=== PATIENT | male | born 1950 | race Caucasian/White ===

== ENCOUNTER 2017-10-31 15:57 | Emergency (ER) | payer MEDICARE, BC ==
[2017-10-31 16:47] VITALS: BP 162/107
--- NOTE | 2017-10-31 17:02 | ED ---
Hypertension - HPI Summary HPI Summary: 67 YO M WITH ELEVATED BPS, RIGHT SIDED MUSE AND FLUSHING FOR 2 DAYS. CONTINUES TO TAKE HIS REGULAR BP MEDS. NO CHEST PAIN/SOB. MUSE IS 3/10. NO FOCAL WEAKNESS. HAS BEEN URINATING A LOT. - History of Current Complaint Chief Complaint: UCGeneralIllness Stated Complaint: HIGH BLOOD PRESSURE Time Seen by Provider: 10/31/17 16:43 - Allergies/Home Medications Allergies/Adverse Reactions: Allergies Allergy/AdvReac Type Severity Reaction Status Date / Time Baum Allergy Severe Hives Verified 10/31/17 16:00 Codeine Allergy Severe Nausea And Verified 10/31/17 16:00 Vomiting Oxycodone Allergy Nausea And Verified 10/31/17 16:00 Vomiting Home Medications: Home Medications Acetaminophen TAB* [Tylenol TAB*] 500 mg PO QID 10/31/17 [History Confirmed 05/12] Aspirin 81 mg PO DAILY 10/31/17 [History Confirmed 10/31/17] Dronedarone TAB* [Multaq TAB*] 1 tab PO DAILY 10/31/17 [History Confirmed ] Hydrochlorothiazide TAB* [Hydrodiuril TAB*] 12.5 mg PO DAILY 10/31/17 [History Confirmed 10/31/17] Potassium Chlor TAB* [Potassium Chlor TAB 20 MEQ*] 20 meq PO BID 10/31/17 [ History Confirmed 10/31/17] Pravastatin Sodium [Pravachol] 40 mg PO DAILY 10/31/17 [History Confirmed ] Quinapril HCl 40 mg PO DAILY 10/31/17 [History Confirmed 10/31/17] PMH/Surg Hx/FS Hx/Imm Hx Endocrine/Hematology History: Denies: Hx Diabetes Cardiovascular History: Reports: Hx Hypertension - ON MEDS Denies: Hx Pacemaker/ICD Respiratory History: Reports: Hx Sleep Apnea History: Reports: Other Problems/Disorders - HX OF PROSTATE PROBLEMS Denies: Hx Dialysis, Hx Renal Disease Musculoskeletal History: Reports: Hx Arthritis - NEW, Other Musculoskeletal History Sensory History: Reports: Hx Contacts or Glasses Denies: Hx Hearing Aid Opthamlomology History: Reports: Hx Contacts or Glasses Neurological History: Reports: Hx Nerve Disease - SHORT FIBER peripheral Psychiatric History: Denies: Hx Panic Disorder - Cancer History Hx Chemotherapy: No - Surgical History Surgery Procedure, Year, and Place: right knee arthroscopy 2004 [facility] [place]. gastric hernia 2000 [facility] [place]. Left knee arthroscopy X 2. sinus drainage 1971 [place]. right knee open surgery [facility]. right knee injury surgery 1961 [facility]. Inguinal hernia repair 1961 [facility]. LEFT TKR SEP 19 2016 Hx Anesthesia Reactions: No Infectious Disease History: No Infectious Disease History: Reports: History Other Infectious Disease - staph in sinuses 1971 Denies: Hx Clostridium Difficile, Hx Hepatitis, Hx Human Immunodeficiency Virus (HIV), Hx of Known/Suspected MRSA, Hx Shingles, Hx Tuberculosis, Hx Known/ Suspected VRE, Hx Known/Suspected VRSA, Traveled Outside the in Last 30 Days - Social History Alcohol Use: None Alcohol Amount: NON ALCOHOLIC BEER Substance Use Type: Reports: None Smoking Status (MU): Former Smoker Review of Systems Positive: Other - FLUSHING, FEELS JITTERY Eyes: Negative ENT: Negative Cardiovascular: Negative Positive: Other - REPORTS HEART RATE FAST 95-106 AT HOME Respiratory: Negative Gastrointestinal: Negative Positive: other - URINATING A LOT Musculoskeletal: Negative Skin: Other - FLUSHING Positive: Headache - 3/10 RT SIDED Psychological: Normal All Other Systems Reviewed And Are Negative: Yes Physical Exam Triage Information Reviewed: Yes Vital Signs On Initial Exam: Initial Vitals Temp Pulse Resp BP Pulse Ox 98 F 78 20 192/108 100 10/31/17 16:08 10/31/17 16:08 10/31/17 16:08 10/31/17 16:08 10/31/17 16:08 Vital Signs Reviewed: Yes Appearance: Positive: Well-Appearing, No Pain Distress Skin: Positive: Warm, Other - FLUSHED Head/Face: Positive: Normal Head/Face Inspection Eyes: Positive: Normal, EOMI, CARINA ENT: Positive: Normal ENT inspection Neck: Positive: Supple Respiratory/Lung Sounds: Positive: Clear to Auscultation Cardiovascular: Positive: Normal, RRR Abdomen Description: Positive: Nontender, Soft Bowel Sounds: Positive: Present Musculoskeletal: Positive: Normal. Negative: Edema Left, Edema Right Neurological: Positive: Normal, Sensory/Motor Intact, Alert, Oriented to Person Place, Time Psychiatric: Positive: Normal AVPU Assessment: Alert - Erinn Coma Scale Best Eye Response: 4 - Spontaneous Best Motor Response: 6 - Obeys Commands Best Verbal Response: 5 - Oriented Diagnostics - Vital Signs Vital Signs Temp Pulse Resp BP Pulse Ox 10/31/17 16:47 93 16 162/107 10/31/17 16:28 95 16 168/107 95 10/31/17 16:08 98 F 78 20 192/108 100 - Laboratory Lab Results: Lab Results 10/31/17 Range/Units 16:24 POC Glucose (mg/dL) 105 H (70-100) mg/dL Lab Statement: Any lab studies that have been ordered have been reviewed, and results considered in the medical decision making process. Hypertension Course/Dx - Course Course Of Treatment: DISCUSSED WITH DR ALFARO AT ED. PATIENT WILL GO BY POV TO ED FOR FUTHER EVAL. - Diagnoses Provider Diagnoses: Hypertension, Flushing, Headache Discharge - Discharge Plan Condition: Stable Disposition: OTHER Discharge Disposition Comment: WILL GO DIRECTLY TO ED FOR FURTHER EVAL Patient Education Materials: Hypertension (ED), General Headache (ED) Referrals: Aime Correia MD [Primary Care Provider] - Additional Instructions: GO DIRECTLY TO THE EMERGENCY DEPARTMENT FOR FURTHER EVALUATION OF YOUR HIGH BLOOD PRESSURE, FLUSHING AND HEADACHE.
== END 2017-10-31 17:09 ==
LOC: UCEAST 15:57
DX: I10 Essential (primary) hypertension (principal); R23.2 Flushing; R51 Headache; Z88.5 Allergy status to narcotic agent; Z87.891 Personal history of nicotine dependence
CPT/HCPCS: 93005; 99212; G0463

== ENCOUNTER 2017-10-31 17:35 | Emergency (ER) | payer MEDICARE, BC ==
[2017-10-31] MEDS ORDERED: Carvedilol TAB* 6.25 MG PO ONE (19:17)
[2017-10-31 19:30] LABS: ABS Basophils 0.1 10^3/ul (0-0.2); ABS Eosinophils 0.1 10^3/ul (0-0.6); ABS Lymphocytes 3.4 10^3/ul (1.0-4.8); ABS Neutrophils 5.4 10^3/ul (1.5-7.7); ABS Nucleated RBC 0.01 10^3/ul; Eosinophil % 1.5 % (0-6); Hematocrit 40 % (42-52); Lymphocyte % 33.6 % (25-47); Mean Corpuscular HGB Conc 35 g/dl (31-36); Mean Corpuscular Hemoglobin 29 pg (27-31); Mean Corpuscular Volume 83 fL (80-94); Mean Platelet Volume 9 um3 (7.4-10.4); Nucleated Red Blood Cells % 0.1; Platelet Count 175 10^3/ul (150-450); Red Blood Count 4.86 10^6/ul (4.0-5.4); Red Cell Distribution Width 15 % (10.5-15)
[2017-10-31 19:40] LABS: EGFR Non-African American 82.1 (>60)
[2017-10-31 20:09] LABS: Urine Appearance Clear; Urine Blood Negative (Negative); Urine Color Straw; Urine Ketones Negative (Negative); Urine Protein Negative (Negative); Urine Specific Gravity 1.003 (1.010-1.030); Urine Urobilinogen Negative (Negative)
[2017-10-31] MEDS ORDERED: Potassium Chloride LIQUID* 20 MEQ PACKET PO ONE (20:22)
[2017-10-31 21:24] VITALS: BP 143/92
--- NOTE | 2017-11-29 23:00 | ED ---
Earlene Sosa Nilda, scribed for Hal Dye MD on 10/31/17 at 1854 . Hypertension - HPI Summary HPI Summary: This patient is a 67 year old M presenting to [facility] [place] accompanied by with a chief complaint of constant elevated blood pressure for the past three days. Pt checks BP at home every day and was referred to ED by Dr. Hirsch. Symptoms aggravated and alleviated by nothing. Patient reports headache (4/10 in severity , past 2 days), elevated HR (past 3 days), and looking flushed. He states, I havent had a headache in 15 years. Patient denies fever, chills, palpitations , CP, SOB, dizziness, and edema abnormal from baseline. Medications include HCTZ and Quinipril. Pt states he was recently tapered off B12 and magnesium for neuropathy, but other medications have remained otherwise consistent. Allergies include codeine and codeine derivatives. - History of Current Complaint Chief Complaint: EDHypertension Stated Complaint: HIGH BP/SENT FROM Hx Obtained From: Patient Onset/Duration: Started Days Ago - 3 days, Still Present Timing: Constant Aggravating Factor(s): Nothing Alleviating Factor(s): Nothing Associated Signs & Symptoms: Other: - headache (4/10 in severity, past 2 days), elevated HR (past 3 days), and looking flushed. He states, I havent had a headache in 15 years. Patient denies fever, chills, palpitations, CP, SOB, dizziness, and edema abnormal from baseline. - Allergies/Home Medications Allergies/Adverse Reactions: Allergies Allergy/AdvReac Type Severity Reaction Status Date / Time Baum Allergy Severe Hives Verified 10/31/17 16:00 Codeine Allergy Severe Nausea And Verified 10/31/17 16:00 Vomiting Oxycodone Allergy Nausea And Verified 10/31/17 16:00 Vomiting PMH/Surg Hx/FS Hx/Imm Hx Endocrine/Hematology History: Denies: Hx Diabetes Cardiovascular History: Reports: Hx Hypertension - ON MEDS Denies: Hx Pacemaker/ICD Respiratory History: Reports: Hx Sleep Apnea History: Reports: Other Problems/Disorders - HX OF PROSTATE PROBLEMS Denies: Hx Dialysis, Hx Renal Disease Musculoskeletal History: Reports: Hx Arthritis - NEW, Other Musculoskeletal History Sensory History: Reports: Hx Contacts or Glasses Denies: Hx Hearing Aid Opthamlomology History: Reports: Hx Contacts or Glasses Neurological History: Reports: Hx Nerve Disease - SHORT FIBER peripheral Psychiatric History: Denies: Hx Panic Disorder - Cancer History Hx Chemotherapy: No - Surgical History Surgery Procedure, Year, and Place: right knee arthroscopy 2004 [facility]. gastric hernia 2000 [facility]. Left knee arthroscopy X 2. sinus drainage 1971 [place]. right knee open surgery 1969 [facility]. right knee injury surgery 1961 [facility]. Inguinal hernia repair 1961 [facility]. LEFT TKR SEP 19 2016 Hx Anesthesia Reactions: No Infectious Disease History: No Infectious Disease History: Reports: History Other Infectious Disease - staph in sinuses 1971 Denies: Hx Clostridium Difficile, Hx Hepatitis, Hx Human Immunodeficiency Virus (HIV), Hx of Known/Suspected MRSA, Hx Shingles, Hx Tuberculosis, Hx Known/ Suspected VRE, Hx Known/Suspected VRSA, Traveled Outside the in Last 30 Days - Family History Known Family History: Negative: Cardiac Disease, Hypertension - Social History Alcohol Use: None Alcohol Amount: NON ALCOHOLIC BEER Substance Use Type: Reports: None Smoking Status (MU): Former Smoker Review of Systems Negative: Fever, Chills Positive: Other - elevated HR and blood pressure. Negative: Palpitations, Chest Pain Negative: Shortness Of Breath Negative: Edema - negative edema abnormal from baseline Positive: Other - flushed appearance Neurological: Other - negative dizziness Positive: Headache All Other Systems Reviewed And Are Negative: Yes Physical Exam - Summary Physical Exam Summary: Appearance: Well-appearing, Well-nourished Skin: Warm, Dry, No rash, plethoric in appearance Eyes: Normal, PERRL, EOMI, sclera anicteric ENT: Normal Neck: Supple, nontender Respiratory: Clear to auscultation, no dyspnea Cardiovascular: S1, S2, no murmur, no rub, no gallop Abdomen: Soft, nontender, no organomegaly Bowel sounds: Present Musculoskeletal: Normal, Strength/ROM Intact, no edema, pulses symmetrical Neurological: Normal, A&Ox3, cranial nerves II-XII WNL, follows commands, gait not tested, sensation intact to pin and light touch Psychiatric: affect normal, behavior appropriate, dressed appropriately, judgment intact Triage Information Reviewed: Yes Vital Signs On Initial Exam: Initial Vitals Temp Pulse Resp BP Pulse Ox 97.2 F 93 17 185/105 95 10/31/17 18:00 10/31/17 18:00 10/31/17 18:00 10/31/17 18:00 10/31/17 18:00 Vital Signs Reviewed: Yes Diagnostics - Vital Signs Vital Signs Temp Pulse Resp BP Pulse Ox 10/31/17 18:00 97.2 F 93 17 185/105 95 - Laboratory Result Diagrams: 10/31/17 19:14 10/31/17 19:14 Lab Statement: Any lab studies that have been ordered have been reviewed, and results considered in the medical decision making process. Re-Evaluation - Re-Evaluation First Eval Re-Evaluation Time: 19:18 Comment: Reviewed plan with pt. Hypertension Course/Dx - Course Assessment/Plan: This patient is a 67 year old M presenting to [facility] accompanied by with a chief complaint of constant elevated blood pressure for the past three days. Pt checks BP at home every day and was referred to ED by Dr. Hirsch. Symptoms aggravated and alleviated by nothing. Patient reports headache (4/10 in severity, past 2 days), elevated HR (past 3 days), and looking flushed. He states, I havent had a headache in 15 years. Patient denies fever, chills, palpitations, CP, SOB, dizziness, and edema abnormal from baseline. Medications include HCTZ and Quinipril. Pt states he was recently tapered off B12 and magnesium for neuropathy, but other medications have remained otherwise consistent. Allergies include codeine and codeine derivatives. Pending labs. Chloride and sodium is low. In the ED course, the patient was given Coreg and Klor-Con. Pt is stable and will be D/C with Dx of hyponatremia and hypertension and a prescription for Coreg. Pt understands and is agreeable with this plan. - Diagnoses Provider Diagnoses: Hyponatremia, Hypertension Discharge - Discharge Plan Condition: Stable Disposition: HOME Prescriptions: Carvedilol [Coreg] 6.25 mg PO BID 30 Days #60 tab Referrals: Aime Correia MD [Primary Care Provider] - 1 Week Additional Instructions: RETURN TO THE EMERGENCY DEPARTMENT FOR CHANGING OR WORSENING SYMPTOMS. The documentation as recorded by the Earlene anderson Nilda accurately reflects the service I personally performed and the decisions made by me, Hal Dye MD.
== END 2017-10-31 21:23 | disposition home or self-care (01) ==
LOC: ED 17:35
DX: I10 Essential (primary) hypertension (principal); E87.1 Hypo-osmolality and hyponatremia; Z87.891 Personal history of nicotine dependence; Z88.5 Allergy status to narcotic agent
CPT/HCPCS: 36415; 80053; 81003; 82043; 82570; 83835; 84443; 85025; 99282; A9270-GY

== ENCOUNTER 2018-04-25 11:56 | Day surgery (SDC) | payer MEDICARE, BC ==
[~2018-04-25 11:56] MED LIST: Buffered Lidocaine 0.9% SYRIN* 5 ML/SYR SYRINGE INTRADERM ONE
[2018-04-25] MEDS ORDERED: ceFAZolin 2 GM PREMIX (*) 2 GM/50 ML BAG IVPB ONE (12:31)
[2018-04-25] MEDS ORDERED: fentaNYL* 50 MCG/ML 2 ML VIAL (100 MCG VIAL) IV PRN (14:57)
[2018-04-25] MEDS ORDERED: Ondansetron ODT TAB* 4 MG PO PRN (14:57)
[2018-04-25] MEDS ORDERED: PROCHLORPERAZINE INJ 5 MG/ML 2 ML VIAL IV PRN (14:57)
[2018-04-25] MEDS ORDERED: Acetaminophen TAB* 325 MG PO PRN (14:57)
[2018-04-25] MEDS ORDERED: Naloxone* 0.4 MG/ML 1 ML VIAL IV PRN (14:57)
[2018-04-25] MEDS ORDERED: DiMENhydriNATE IV* 50 MG/ML VIAL IV PUSH PRN (14:57)
[2018-04-25] MEDS ORDERED: fentaNYL* 50 MCG/ML 2 ML VIAL (100 MCG VIAL) ONE ×2 (15:31→18:03)
[2018-04-25] MEDS ORDERED: Midazolam* 1 MG/ML 2 ML VIAL (2 MG) ONE (15:31)
[2018-04-25] MEDS ORDERED: Mineral Oil Sterile, TOPICAL* 25 ML BTL ONE (16:00)
[2018-04-25] MEDS ORDERED: Dexamethasone IV* 4 MG/ML 1 ML (4 MG) ONE (16:07)
[2018-04-25] MEDS ORDERED: Lidocaine 2% PF * 5 ML VIAL ONE (16:07)
[2018-04-25] MEDS ORDERED: Propofol* 10 MG/ML 20 ML BTL IV PUSH ONE (16:07)
[2018-04-25] MEDS ORDERED: Famotidine IV* 10 MG/ML 2 ML (20 mg) ONE (16:07)
[2018-04-25] MEDS ORDERED: Rocuronium* 10 MG/ML VIAL ONE (16:08)
[2018-04-25] MEDS ORDERED: Lidocain 1% EPI 1:100,000 * 30 ML MDV ONE (16:27)
[2018-04-25] MEDS ORDERED: PROCHLORPERAZINE INJ 5 MG/ML 2 ML VIAL ONE (16:42)
[2018-04-25] MEDS ORDERED: Ketorolac INJ* 30 MG/ML 1 ML VIAL ONE (16:43)
[2018-04-25] MEDS ORDERED: Glycopyrrolate IV* 0.2 MG/ML 1 ML VIAL ONE ×2 (17:35→17:36)
[2018-04-25] MEDS ORDERED: Neostigmine Methylsulfate* 2 MG/2 ML SYRINGE ONE ×2 (17:35→17:39)
[2018-04-25] MEDS ORDERED: Bacitracin OINTMENT* 0.5% 0.5 oz TUBE ONE (17:41)
--- NOTE | 2018-04-25 17:54 | OP ---
Operative Report - Blank - Operative Report Date of Operation: 04/25/18 Note: PATIENT: Tayler Jefferson DATE OF : 1950 DATE OF SURGERY: 04/25/2018 SURGEON: Norbert Ramírez MD PARTNERSHIP DEVELOPMENT MANAGER: SANDY Chaparro, whos assistance was necessary for positioning, retraction, help with instrumentation, and closure. ANESTHESIOLOGIST: Dr. Guerra PREOPERATIVE DIAGNOSIS: Left posterior leg wound POSTOPERATIVE DIAGNOSIS: Left posterior leg wound OPERATION: Left leg split-thickness skin grafting ANESTHESIA: GETA IMPLANTS: none TOURNIQUET TIME: none SPECIMENS: none ESTIMATED BLOOD LOSS: minimal COMPLICATIONS: none STATUS: Stable from the operating room to the recovery room and then home INDICATIONS FOR PROCEDURE: Tayler has had a nonhealing wound of his left posterior leg. Both operative and non-operative treatment alternatives were reviewed. Further, the nature and risks of surgery were reviewed in careful detail, in the office as well as the pre-operative holding area. Our discussions regarding the risks of surgery included, but were not limited to, infection, wound problems, graft failure, nerve injury, neuroma, RSD, persistent symptoms, blood clot, failure of the surgery, need for further surgery, and even the remote chance of catastrophic complication, including loss of limb. DESCRIPTION OF PROCEDURE: The patient was seen in the preoperative holding unit and informed written consent was obtained. The appropriate extremity was marked. The patient was then brought to the operating room and carefully positioned on the operating room table. Anesthesia was induced. All bony prominences were padded with great care. A chlorhexidine based pre-scrub was performed followed by a betadine prep and drape in standard sterile fashion. A surgical safety pause was then conducted in which we confirmed the appropriate patient, extremity, planned procedure, availability of equipment, indication and administration of prophylactic antibiotics, and DVT prophylaxis in the form of a compression boot on the non-surgical extremity. The wound measured 4cm wide by 2.5cm long by 3mm deep. The wound was sharply debrided with a scalpel and scissors of any fibrinous material. The wound edges were excised to a healthy and bleeding edge. The Betadine was then cleaned from the left thigh donor site and sterile mineral oil was placed on the donor site. The dermatome was set to 0.4 mm and used to harvest a split thickness skin graft from the thigh. A sponge soaked in lidocaine with epinephrine was then placed on the donor site. The skin graft was then meshed with the use of a mesher at a ratio of 1.5:1. The skin graft was then placed into the wound and the edges were sutured using 4-0 chromic suture. The excess graft was then trimmed. The graft was then covered with Xeroform and a wound VAC was placed with suction at 125 mmHg. The thigh donor site was then covered with Xeroform, gauze and tegaderm. The patient was then awakened from anesthesia and transferred to the recovery room in stable condition. There were no complications. All needle and sponge counts were correct at the end of the case. ATTESTATION: I attest I was present and scrubbed and performed the critical portions of the procedure myself. POSTOPERATIVE PLAN: The dressing at the donor site will be removed on postoperative day 1, and left open to air with 3 times a day blow drying. The VAC at the recipient site will be taken down on postoperative day 5 and switched to Xeroform dressings. He will continue on oral antibiotics.
[2018-04-25 19:31] VITALS: BP 140/91
== END 2018-04-25 20:10 | disposition home or self-care (01) ==
LOC: OR 11:56
PROVIDERS: ATTEND Orthopaedic Surgery
DX: S81.802A Unspecified open wound, left lower leg, initial encounter (principal); Z87.891 Personal history of nicotine dependence; I10 Essential (primary) hypertension; G47.33 Obstructive sleep apnea (adult) (pediatric); E78.5 Hyperlipidemia, unspecified; M54.16 Radiculopathy, lumbar region; G62.9 Polyneuropathy, unspecified; W26.8XXA Contact with other sharp object(s), not elsewhere classified, initial encounter; Y93.89 Activity, other specified; Y92.9 Unspecified place or not applicable
CPT/HCPCS: A9270-GY; J0690; J0780; J1100; J1885; J2250; J2704; J3010

== ENCOUNTER 2020-08-03 11:30 | Observation (INO) ==
[~2020-08-03 11:30] MED LIST changes: -Buffered Lidocaine 0.9% SYRIN* 5 ML/SYR SYRINGE INTRADERM ONE; +Buffered Lidocaine 1% SYRIN 1 ml INTRADERM ONE; +Dexamethasone IV 4 MG/ML VIAL 1 ml VIAL IV SLOW PU ONE; +Famotidine IV 10 MG/ML 2 ml VIAL (20 mg) IV ONE; +Lactated Ringers 1000 ml BAG 1,000 ML IV SCH
[2020-08-03] MEDS ORDERED: fentaNYL 100 mcg/2 ml 50 MCG/ML VIAL ONE ×3 (11:52→14:01)
[2020-08-03] MEDS ORDERED: ROPIVACAINE 5 MG/ML 30 ML BTL (0.5%) ONE (11:52)
[2020-08-03] MEDS ORDERED: Midazolam 2 mg/2 ml VIAL 1 mg/ml 2 ml VIAL (2 mg) ONE ×2 (11:52→13:10)
[2020-08-03] MEDS ORDERED: ceFAZolin 2 GM PREMIX 2 GM/50 ML BAG ONE (11:58)
[2020-08-03] MEDS ORDERED: Dexamethasone IV 4 MG/ML VIAL 1 ml VIAL ONE (11:58)
[2020-08-03] MEDS ORDERED: Famotidine IV 10 MG/ML 2 ml VIAL (20 mg) ONE (11:58)
[2020-08-03] MEDS ORDERED: Phenylephrine 40 mcg/mL 10mL (400mcg) SYRINGE ONE (13:48)
[2020-08-03] MEDS ORDERED: Acetaminophen IV 1 GM/100ML 100 ML ONE (13:48)
[2020-08-03] MEDS ORDERED: Naloxone 0.4 mg VIAL 0.4 mg/ml 1 ml VIAL IV PRN (13:54)
[2020-08-03] MEDS ORDERED: Ondansetron 4 mg VIAL 2 MG/ML 2 ml VIAL IV PRN ×2 (13:54→16:00)
[2020-08-03] MEDS ORDERED: fentaNYL 100 mcg/2 ml 50 MCG/ML VIAL IV PRN (13:54)
[2020-08-03] MEDS ORDERED: Lidocaine 2% PF 5 ML VIAL ONE (14:00)
[2020-08-03] MEDS ORDERED: Succinylcholine 200 mg VIAL 20 mg/ml 10 ml VIAL (200 mg) ONE (14:00)
[2020-08-03] MEDS ORDERED: Ondansetron 4 mg VIAL 2 MG/ML 2 ml VIAL ONE (14:01)
[2020-08-03] MEDS ORDERED: EPHEDrine (Pressors) 50 MG/ML VIAL ONE (14:01)
[2020-08-03] MEDS ORDERED: HYDROmorphone 1 MG/1 ML SYRINGE ONE ×2 (15:29→16:08)
[2020-08-03] MEDS ORDERED: Magnesium Hydroxide LIQ 30 ML UDC PO PRN (16:00)
[2020-08-03] MEDS ORDERED: Lactulose 30 ml UDC PO PRN (16:00)
[2020-08-03] MEDS ORDERED: Morphine 2 MG/ML SYRINGE IV PRN (16:00)
[2020-08-03] MEDS ORDERED: diPHENhydraMINE IV 50 MG/ML 1 ml VIAL (BENADRYL) IV PRN (16:00)
[2020-08-03] MEDS ORDERED: Ondansetron ODT 4 mg TAB 4 MG TAB PO PRN (16:00)
[2020-08-03] MEDS ORDERED: diPHENhydraMINE 25 mg TAB PO PRN (16:00)
[2020-08-03] MEDS ORDERED: oxyCODONE/Acetamin 5/325 mg TAB PO PRN (16:00)
[2020-08-03] MEDS: HYDROmorphone 1 MG/1 ML SYRINGE IV PRN ×3 (16:11→16:39)
[2020-08-03] MEDS: Lactated Ringers 1000 ml BAG 1,000 ML IV SCH (17:18)
[2020-08-03] MEDS: Magnesium Hydroxide LIQ 30 ML UDC PO SCH (20:31)
[2020-08-03] MEDS: ceFAZolin 1 GM ADVAN 1 GM in NS 0.9% 50 ML 50 ML IVPB SCH (22:17)
[2020-08-04] MEDS: Lactated Ringers 1000 ml BAG 1,000 ML IV SCH (03:18)
[2020-08-04 05:54] LABS: Hematocrit 37 % (42-52); Hemoglobin 12.8 g/dL (14.0-18.0); Mean Platelet Volume 9.1 fL (7.4-10.4); Platelet Count 157 10^3/uL (150-450)
[2020-08-04] MEDS: ceFAZolin 1 GM ADVAN 1 GM in NS 0.9% 50 ML 50 ML IVPB SCH (06:03)
[2020-08-04 06:15] LABS: BUN/Creatinine Ratio 15.9 (8-20); Calcium 8.9 mg/dL (8.6-10.3); EGFR African American 103.6 (>60); EGFR Non-African American 85.6 (>60); Potassium 4.3 mmol/L (3.5-5.0)
[2020-08-04 07:33] VITALS: BP 122/71
[2020-08-04] MEDS: Magnesium Hydroxide LIQ 30 ML UDC PO SCH (08:22)
[2020-08-04] MEDS ORDERED: Vitamin THERAPEUTIC TAB PO SCH (09:00)
== END 2020-08-04 11:08 | disposition home or self-care (01) ==
LOC: SSU 11:30 → OR 11:30
PROVIDERS: ADMIT Orthopaedic Surgery Adult Reconstructive Orthopaedic Surgery; ATTEND Orthopaedic Surgery Adult Reconstructive Orthopaedic Surgery